=== PATIENT | female | born 1975 | race Hispanic/Latino ===

== ENCOUNTER → 2024-03-25 | Day surgery (SDC) | payer OTHER ==
[~2024-03-25] MED LIST: FENTANYL CITRATE/PF 100MCG/2 ML INJ ONE; GLYCOPYRROLATE INJ 0.2 MG/ML VIAL ONE; KETOROLAC TROME10 MG PO; LIDOCAINE HCL 2% LOCAL INJ 5 ML SDV VIAL INJ ONE; MIDAZOLAM HCL 2 MG/2 ML VIAL ONE; PROPOFOL IV EMULSION 10 MG/ML 20 ML VIAL ONE
[2024-03-25] MEDS: LACTATED RINGER'S 1,000 ML ONE (07:27)
[2024-03-25 11:14] VITALS: TEMP 97.1
[2024-03-25 11:35] VITALS: BP 117/81; PULSE 75; RESP 18; O2SAT 99
== END | disposition home or self-care (01) ==
LOC: OR 07:06
PROVIDERS: ATTEND Internal Medicine Gastroenterology
DX: K29.50 Unspecified chronic gastritis without bleeding (principal); D12.2 Benign neoplasm of ascending colon; D12.3 Benign neoplasm of transverse colon; D12.4 Benign neoplasm of descending colon; K57.30 Diverticulosis of large intestine without perforation or abscess without bleeding; K62.5 Hemorrhage of anus and rectum; K21.00 Gastro-esophageal reflux disease with esophagitis, without bleeding; K63.89 Other specified diseases of intestine; K62.89 Other specified diseases of anus and rectum; K59.00 Constipation, unspecified; K64.4 Residual hemorrhoidal skin tags; K64.8 Other hemorrhoids; E66.01 Morbid (severe) obesity due to excess calories; N20.0 Calculus of kidney; Z01.810 Encounter for preprocedural cardiovascular examination; Z79.1 Long term (current) use of non-steroidal anti-inflammatories (NSAID); Z68.34 Body mass index [BMI] 34.0-34.9, adult; Z80.0 Family history of malignant neoplasm of digestive organs
CPT/HCPCS: 43239; 45384; 45385; 81025; 93005; J2003; J2250; J2704; J3010; J7121; 45378

== ENCOUNTER 2024-03-27 16:20 | Emergency (ER) | payer OTHER ==
[~2024-03-27] VITALS: Ht 160 cm; Wt 88.5 kg
[2024-03-27 16:31] VITALS: PULSE 87; RESP 18; TEMP 97.5
[2024-03-27 17:12] LABS: BASOPHILS # (AUTO) 0.1 (0.0-0.1); BASOPHILS % 0.6 % (0.0-1.0); EOSINOPHILS # (AUTO) 0.5 (0.0-0.4); EOSINOPHILS % 5.5 % (0.0-6.0); HEMATOCRIT 37.7 % (34.2-44.1); HEMOGLOBIN 12.1 g/dL (12.0-16.0); LYMPHOCYTES # (AUTO) 2.1 (1.0-3.2); LYMPHOCYTES % 25.5 % (18.0-39.1); MEAN CORPUSCULAR HEMOGLOBIN 29.2 pg (28-32); MEAN CORPUSCULAR HGB CONC 32.1 g/dL (31-35); MEAN CORPUSCULAR VOLUME 90.8 fL (81-99); MONOCYTES # (AUTO) 0.9 (0.2-0.8); MONOCYTES % 10.6 % (4.4-11.3); NEUTROPHILS # (AUTO) 4.7 (2.1-6.9); NEUTROPHILS % 57.2 % (38.7-80.0); PLATELET COUNT 305 x10e3/uL (140-360); RED BLOOD COUNT 4.15 x10e6/uL (3.6-5.1); RED CELL DISTRIBUTION WIDTH 14.3 % (11.7-14.4); WHITE BLOOD COUNT 8.19 x10e3/uL (4.8-10.8)
[2024-03-27 17:31] LABS: ALBUMIN 4.1 g/dL (3.5-5.0); ALBUMIN/GLOBULIN RATIO 1.3 (0.8-2.0); ANION GAP 16.6 mmol/L (8-16); BILIRUBIN,TOTAL 0.3 mg/dL (0.2-1.2); CALCIUM 9.2 mg/dL (8.4-10.2); CREATININE, SERUM 0.79 mg/dL (0.57-1.11); POTASSIUM 3.6 mmol/L (3.5-5.1); TOTAL PROTEIN 7.3 g/dL (6.5-8.1)
[2024-03-27 17:35] LABS: BILIRUBIN,URINE NEGATIVE (NEGATIVE); CLARITY,URINE HAZY (CLEAR); COLOR,URINE YELLOW (YELLOW); GLUCOSE, URINE NEGATIVE (NEGATIVE); KETONES,URINE 1+ (NEGATIVE); LEUKOCYTE ESTERASE ,URINE TRACE (NEGATIVE); NITRITE,URINE NEGATIVE (NEGATIVE); PH,URINE 6 (5 - 7); PROTEIN,URINE DIPSTICK NEGATIVE (NEGATIVE); URINE UROBILINOGEN 0.2 mg/dL (0.2 - 1)
[2024-03-27 17:45] LABS: BACTERIA,URINE FEW /HPF; EPITHELIAL CELLS,URINE MANY /LPF; RBC,URINE 0-5 /HPF (0-5); WBC,URINE (MAN) 0-5 /HPF (0-5)
[2024-03-27] MEDS: SODIUM CHLORIDE 0.9% 1000ML 1,000 ML IV STA (18:30)
[2024-03-27] MEDS: ONDANSETRON HCL INJ 2MG/ML 2ML 2 MG/ML VIAL IV STA (18:30)
[2024-03-27] MEDS: Morphine 4mg INJECTION 4 MG/ML INJ IV STA (18:31)
[2024-03-27 18:53] LABS: TROPONIN I 0.023 ng/mL (0-0.300)
[2024-03-27] MEDS: FAMOTIDINE 20 MG/2 ML VIAL IV STA (20:05)
[2024-03-27] MEDS ORDERED: KETOROLAC TROME10 MG PO (20:17)
[2024-03-27 20:47] VITALS: BP 133/67; O2SAT 100
== END 2024-03-27 20:48 | disposition home or self-care (01) ==
LOC: ER 18:03
DX: R10.12 Left upper quadrant pain (principal); Z87.19 Personal history of other diseases of the digestive system
CPT/HCPCS: 36415; 74177; 80053; 81001; 82550; 83690; 84484; 84702; 85025; 99283; J2270; J2405; J7030